=== PATIENT | male | born 1975 | race African-American/Black ===

== ENCOUNTER 2019-03-08 10:49 | Emergency (ER) | payer OTHER ==
[~2019-03-08] VITALS: Ht 180.3 cm; Wt 98.4 kg
--- NOTE | 2019-03-08 12:00 | NUR ---
Pt to xray from lobby, then to rm 35 after.
[2019-03-08 12:08] LABS: BASOPHILS # (AUTO) 0.04 x10^3/uL (0-0.1); BASOPHILS % (AUTO) 1 % (0-1); EOSINOPHILS # (AUTO) 0.45 x10^3/uL (0-0.4); EOSINOPHILS % (AUTO) 6 % (1-7); LYMPHOCYTES # (AUTO) 2.03 x10^3/uL (1-3.4); LYMPHOCYTES % (AUTO) 26 % (22-44); MD NO; MEAN CORPUSCULAR HEMOGLOBIN 27.5 pg (27.5-34.5); MEAN CORPUSCULAR HGB CONC 32.9 g/dL (33.2-36.2); MEAN CORPUSCULAR VOLUME 83.6 fL (81-97); MEAN PLATELET VOLUME 9.9 fL (7.4-10.4); MONOCYTES % (AUTO) 12 % (2-9); NEUTROPHILS # (AUTO) 4.37 x10^3/uL (1.8-6.8); NEUTROPHILS % (AUTO) 56 % (42-75); PLATELET COUNT 228 x10^3/uL (130-400); RED CELL DISTRIBUTION WIDTH 14.9 % (9.4-14.8)
--- NOTE | 2019-03-08 12:16 | NUR ---
PT C/O LEFT CHEST PAIN, AND SOB, ON MONDAY [place] AT WORK AFTER WALKING UP THREE FLIGHTS OF STAIRS. PT WALKS THOSE STAIRS EVERY WORK DAY. PT VS TAKEN AT WORK AND WERE NORMAL, NO EKG DONE AT WORK. PT STATES CHEST PAIN HAS BEEN THERE SINCE, BUT ONLY 1/10. CONNECTED TO MONITORING. CALL LIGHT IN REACH.
[2019-03-08 12:21] LABS: ALANINE AMINOTRANSFERASE 45 U/L (12-78); ALBUMIN 3.9 g/dL (3.4-5.0); ANION GAP 7 mmol/L (5-15); CALCIUM 8.3 mg/dL (8.5-10.1); CHLORIDE 111 mmol/L (98-107); CREATININE 1.07 mg/dL (0.7-1.3)
[2019-03-08 12:25] LABS: ALKALINE PHOSPHATASE 77 U/L (45-117); BILIRUBIN,TOTAL 0.6 mg/dL (0.2-1.0); TOTAL PROTEIN 6.8 g/dL (6.4-8.2); TROPONIN I < 0.015 ng/mL (0.000-0.045)
[2019-03-08 13:01] VITALS: BP 119/81
--- NOTE | 2019-03-08 13:02 | NUR ---
PT RESTING COMFORTABLY ON [employer] WATCHING TV.
[2019-03-08] MEDS ORDERED: SODIUM CHLORIDE FLUSH 10ML SYR IVF ONE (13:30)
--- NOTE | 2019-03-08 13:50 | NUR ---
PT AT CT
[2019-03-08] MEDS ORDERED: OMNIPAQUE 350 MG/ML, 100ML BOTTLE ONE (14:06)
--- NOTE | 2019-03-08 14:16 | NUR ---
ALL RESULTS ARE BACK AT THIS TIME. CHART UP FOR RECHECK.
== END 2019-03-08 14:52 | disposition home or self-care (01) ==
LOC: ED 13:14
DX: R07.89 Other chest pain (principal)
CPT/HCPCS: 36415; 71046; 71275; 80053; 84484; 85025; 85379; 93005; 99284; Q9967